=== PATIENT | female | born 1965 | race African-American/Black ===

== ENCOUNTER 2017-10-10 16:56 | Emergency (ER) | payer MEDICARE, MEDICAID ==
[~2017-10-10] VITALS: Ht 162.6 cm; Wt 55.0 kg
[~2017-10-10 16:56] MED LIST: XLV PO
[2017-10-10] MEDS ORDERED: MORPHINE SULFATE 4 MG/ML CPJ (NOT FOR IM USE) IV ONE (17:30)
[2017-10-10] MEDS ORDERED: KETOROLAC 30MG/ML VIAL IV ONE (17:30)
[2017-10-10] MEDS ORDERED: MORPHINE SULFATE 10 MG/ML CPJ IV NR (18:45)
[2017-10-10 22:00] VITALS: BP 131/76
== END 2017-10-10 22:04 | disposition home or self-care (01) ==
LOC: ER 16:56
DX: R07.89 Other chest pain (principal); I10 Essential (primary) hypertension; E11.9 Type 2 diabetes mellitus without complications; F17.210 Nicotine dependence, cigarettes, uncomplicated; I51.9 Heart disease, unspecified; Z95.1 Presence of aortocoronary bypass graft
CPT/HCPCS: 36415; 71020; 81025; 84484; 93005; 96374; 96375; 99285; J1885; J2270

== ENCOUNTER 2019-11-16 15:45 | Inpatient (IN) | payer MEDICARE, MEDICAID ==
[~2019-11-16] VITALS: Ht 157.5 cm; Wt 65.3 kg
[2019-11-16] MEDS ORDERED: ONDANSETRON HCL 4MG/2ML INJ IV STA (18:01)
[2019-11-16] MEDS ORDERED: SODIUM CHLORIDE 0.9% 1,000 ML IV ONE (18:01)
[2019-11-16] MEDS ORDERED: ACETAMINOPHEN 325MG TABLET PO STA (18:01)
[2019-11-16] MEDS ORDERED: PIPERACILLIN/TAZ 3.375G PREMIX 50 ML IV ONE (18:15)
[2019-11-16] MEDS ORDERED: VANCOMYCIN 1 G PREMIX 200 ML IV ONE (18:15)
[2019-11-16 19:12] LABS: BASOPHILS % 0.2 % (0.0-2.0); CHLORIDE 103 mEq/L (98-107); HEMATOCRIT. 36.7 % (36.0-48.0); LYMPHOCYTES % 13.1 % (20.0-50.0); MEAN CORPUSCULAR HEMOGLOBIN 27.7 pg (28.0-32.0); MEAN CORPUSCULAR VOLUME 84.9 fL (81.0-99.0); MEAN PLATELET VOLUME 8.5 fl (7.4-10.4); MONOCYTES % 9.4 % (2.0-8.0); NEUTROPHILS % 77.3 % (40.0-76.0); PLATELET 197 x1000/uL (130-400); RED BLOOD CELL COUNT 4.33 mill/uL (4.2-5.4); RED CELL DISTRIBUTION WIDTH 14.4 % (11.6-14.6)
[2019-11-16 19:13] LABS: INR 1.2; PROTHROMBIN TIME 12.1 sec (9.6-11.0)
[2019-11-16 19:16] LABS: ETHANOL BLOOD < 10 mg/dL
[2019-11-16 20:04] LABS: CLARITY URINE CLEAR (CLEAR); COLOR URINE YELLOW (YELLOW); KETONES URINE NEGATIVE (NEGATIVE); LEUKOCYTE ESTERASE URINE NEGATIVE (NEGATIVE); NITRITE URINE NEGATIVE (NEGATIVE); OCCULT BLOOD URINE NEGATIVE (NEGATIVE); PH URINE 5.5 (4.5-8.0); PROTEIN URINE 2+ (NEGATIVE); SPECIFIC GRAVITY URINE 1.021 (1.005-1.030); UROBILINOGEN URINE 0.2 E.U./dL (0.2-1.0)
[2019-11-16] MEDS ORDERED: KETOROLAC 30MG/ML VIAL IV ONE (20:15)
[2019-11-16 20:16] LABS: *AMPHETAMINES SCREEN URINE NEGATIVE (NEGATIVE); *BARBITURATES SCREEN URINE NEGATIVE (NEGATIVE); *BENZODIAZEPINES SCREEN URINE NEGATIVE (NEGATIVE); *COCAINE SCREEN URINE PRESUMTIVE POSITIVE (NEGATIVE); CANNABINOID URINE SCREEN NEGATIVE (NEGATIVE); METHADONE URINE SCREEN NEGATIVE (NEGATIVE); OPIATES URINE SCREEN PRESUMTIVE POSITIVE (NEGATIVE)
[2019-11-16 20:17] LABS: PHENCYCLIDINE URINE SCREEN NEGATIVE (NEGATIVE)
[2019-11-16] MEDS ORDERED: ONDANSETRON HCL 4MG/2ML INJ IV ONE (22:15)
[2019-11-16] MEDS ORDERED: MORPHINE SULFATE 4 MG/ML CPJ (NOT FOR IM USE) IV ONE (22:15)
[2019-11-16] MEDS ORDERED: DEXAMETHASONE 10 MG/ML VIAL IV ONE (23:30)
[2019-11-16] MEDS ORDERED: LEVETIRACETAM 500MG PREMIX 100 ML IV ONE (23:30)
[2019-11-17] VITALS (34 sets, daily range): BP systolic 83–124; BP diastolic 27–90
[2019-11-17] MEDS ORDERED: GADOBENATE DIMEGLUMINE 529 MG/ML 10ML IV ONE (02:28)
[2019-11-17] MEDS ORDERED: ONDANSETRON HCL 4MG/2ML INJ IV ONE (02:30)
[2019-11-17] MEDS ORDERED: MORPHINE SULFATE 4 MG/ML CPJ (NOT FOR IM USE) IV ONE (02:30)
[2019-11-17] MEDS: IPRATROPIUM/ALBUTEROL 0.5-3(2.5)MG/3ML NEB HHN SCH (05:35)
[2019-11-17] MEDS ORDERED: BENZONATATE 100MG CAPSULE PO PRN (08:00)
[2019-11-17] MEDS ORDERED: IPRATROPIUM/ALBUTEROL 0.5-3(2.5)MG/3ML NEB HHN PRN ×2 (08:00→15:00)
[2019-11-17] MEDS ORDERED: POTASSIUM CHLORIDE 20MEQ TABLET SR PO SCH (09:00)
[2019-11-17] MEDS ORDERED: DIATR MEGLU/DIATRIZOATE SOLN 30ML PO SCH (09:30)
[2019-11-17] MEDS ORDERED: LEVETIRACETAM 500 MG in SODIUM CHLORIDE 0.9% 100 ML IV SCH (09:30)
[2019-11-17] MEDS: LEVETIRACETAM 500MG PREMIX 100 ML IV SCH ×2 (10:30→21:06)
[2019-11-17 11:04] LABS: BASOPHILS % 0.3 % (0.0-2.0); HEMATOCRIT. 34.8 % (36.0-48.0); HEMOGLOBIN. 11.5 g/dL (12.0-16.0); LYMPHOCYTES % 9.4 % (20.0-50.0); MEAN CORPUSCULAR HEMOGLOBIN 28.1 pg (28.0-32.0); MEAN CORPUSCULAR VOLUME 84.9 fL (81.0-99.0); MEAN PLATELET VOLUME 8.6 fl (7.4-10.4); MONOCYTES % 2.7 % (2.0-8.0); NEUTROPHILS % 87.6 % (40.0-76.0); PLATELET 183 x1000/uL (130-400); RED CELL DISTRIBUTION WIDTH 14.7 % (11.6-14.6)
[2019-11-17 11:20] LABS: CHLORIDE 105 mEq/L (98-107)
[2019-11-17] MEDS: DEXAMETHASONE 4MG/ML 1ML VIAL IV SCH ×3 (13:21→23:36)
[2019-11-17] MEDS: DEXT 5%/LACTATED RINGERS 1,000 ML IV SCH ×2 (13:22→23:37)
[2019-11-17] MEDS: MORPHINE SULFATE 2 MG/ML CPJ (NOT FOR IM USE) IV PRN ×2 (13:23→17:26)
[2019-11-17] MEDS ORDERED: DEXTROSE 50% WATER 50ML SYRINGE IV PRN (15:00)
[2019-11-17] MEDS ORDERED: INSULIN LISPRO 100 UNITS/ML SUBCUT SCH (17:00)
[2019-11-17] MEDS: BLOOD SUGAR DIAGNOSTIC STRIP TEST SCH ×2 (17:24→21:00)
[2019-11-17] MEDS: LEVOFLOXACIN 500MG PREMIX 100 ML IV SCH (17:24)
[2019-11-17 18:18] LABS: HEPATITIS B SURFACE ANTIGEN NEGATIVE
[2019-11-17] MEDS ORDERED: INSULIN LISPRO 100 UNITS/ML SUBCUT NR (18:45)
[2019-11-17 18:49] LABS: HEPATITIS A AB IGM NEGATIVE (NEGATIVE)
[2019-11-17] MEDS: MORPHINE SULFATE 4 MG/ML CPJ (NOT FOR IM USE) IV PRN (21:25)
[2019-11-17] MEDS: INSULIN GLARGINE UD 100 UNITS/ML SYR SUBCUT SCH (21:27)
[2019-11-17] MEDS: INSULIN LISPRO 100 UNITS/ML SUBCUT SCH (21:27)
[2019-11-18] VITALS (29 sets, daily range): BP systolic 92–151; BP diastolic 52–76
[2019-11-18] MEDS: DEXAMETHASONE 4MG/ML 1ML VIAL IV SCH ×3 (06:03→17:33)
[2019-11-18] MEDS: MORPHINE SULFATE 4 MG/ML CPJ (NOT FOR IM USE) IV PRN ×4 (06:04→22:01)
[2019-11-18] MEDS: BLOOD SUGAR DIAGNOSTIC STRIP TEST SCH ×4 (06:05→21:47)
[2019-11-18] MEDS: INSULIN LISPRO 100 UNITS/ML SUBCUT SCH ×6 (06:06→22:06)
[2019-11-18] MEDS ORDERED: LIDOCAINE HCL 1% 20ML VIAL (Pyxis) INJ ONE (06:53)
[2019-11-18] MEDS: IPRATROPIUM/ALBUTEROL 0.5-3(2.5)MG/3ML NEB HHN SCH ×4 (08:38→20:00)
[2019-11-18] MEDS: LEVETIRACETAM 500MG PREMIX 100 ML IV SCH ×2 (09:19→21:47)
[2019-11-18] MEDS: INSULIN GLARGINE UD 100 UNITS/ML SYR SUBCUT SCH ×2 (10:00→22:07)
[2019-11-18] MEDS ORDERED: DIPHENHYDRAMINE 50MG/ML VIAL IV SCH (11:00)
[2019-11-18] MEDS: LEVOFLOXACIN 500MG PREMIX 100 ML IV SCH (11:28)
[2019-11-18 15:31] LABS: HEMATOCRIT. 31.7 % (36.0-48.0); HEMOGLOBIN. 10.3 g/dL (12.0-16.0); MEAN CORPUSCULAR HEMOGLOBIN 27.2 pg (28.0-32.0); MEAN CORPUSCULAR VOLUME 84.1 fL (81.0-99.0); MEAN PLATELET VOLUME 8.6 fl (7.4-10.4); PLATELET 171 x1000/uL (130-400); RED BLOOD CELL COUNT 3.77 mill/uL (4.2-5.4); RED CELL DISTRIBUTION WIDTH 14.7 % (11.6-14.6)
[2019-11-18 15:39] LABS: CHLORIDE 108 mEq/L (98-107)
[2019-11-18 16:21] LABS: PLATELET ESTIMATE NORMAL
[2019-11-18] MEDS: ACETYLCYSTEINE 100MG/ML 10% VIAL 4ML INH SCH (16:23)
[2019-11-18] MEDS: DEXT 5%/LACTATED RINGERS 1,000 ML IV SCH (17:38)
[2019-11-19] VITALS (24 sets, daily range): BP systolic 111–147; BP diastolic 56–73
[2019-11-19] MEDS: DEXAMETHASONE 4MG/ML 1ML VIAL IV SCH ×3 (00:24→11:17)
[2019-11-19] MEDS: ACETAMINOPHEN 325MG TABLET PO PRN ×2 (00:36→14:18)
[2019-11-19 06:05] LABS: HEMOGLOBIN. 10.7 g/dL (12.0-16.0); MEAN CORPUSCULAR VOLUME 83.7 fL (81.0-99.0); MEAN PLATELET VOLUME 9.2 fl (7.4-10.4); PLATELET 176 x1000/uL (130-400); RED BLOOD CELL COUNT 3.83 mill/uL (4.2-5.4); RED CELL DISTRIBUTION WIDTH 15.1 % (11.6-14.6)
[2019-11-19 06:15] LABS: CHLORIDE 107 mEq/L (98-107)
[2019-11-19] MEDS: INSULIN LISPRO 100 UNITS/ML SUBCUT SCH ×7 (06:30→21:15)
[2019-11-19] MEDS: BLOOD SUGAR DIAGNOSTIC STRIP TEST SCH ×4 (06:33→20:48)
[2019-11-19] MEDS ORDERED: DIATR MEGLU/DIATRIZOATE SOLN 30ML PO SCH (08:00)
[2019-11-19] MEDS: LEVETIRACETAM 500MG PREMIX 100 ML IV SCH ×2 (08:19→21:09)
[2019-11-19] MEDS: IPRATROPIUM/ALBUTEROL 0.5-3(2.5)MG/3ML NEB HHN SCH ×4 (09:11→20:28)
[2019-11-19] MEDS: ACETYLCYSTEINE 100MG/ML 10% VIAL 4ML INH SCH ×3 (09:11→17:05)
[2019-11-19] MEDS: INSULIN GLARGINE UD 100 UNITS/ML SYR SUBCUT SCH ×2 (09:40→21:16)
[2019-11-19] MEDS: MORPHINE SULFATE 4 MG/ML CPJ (NOT FOR IM USE) IV PRN ×3 (11:17→19:50)
[2019-11-19] MEDS: LEVOFLOXACIN 500MG PREMIX 100 ML IV SCH (11:18)
[2019-11-19 11:40] LABS: PLATELET ESTIMATE NORMAL
[2019-11-19] MEDS ORDERED: IOHEXOL-300 100 ML BOTTLE ONE (12:12)
[2019-11-19] MEDS: DEXT 5%/LACTATED RINGERS 1,000 ML IV SCH (14:55)
[2019-11-20] VITALS (27 sets, daily range): BP systolic 80–142; BP diastolic 46–106
[2019-11-20] MEDS: MORPHINE SULFATE 4 MG/ML CPJ (NOT FOR IM USE) IV PRN ×5 (00:03→21:00)
[2019-11-20] MEDS: IPRATROPIUM/ALBUTEROL 0.5-3(2.5)MG/3ML NEB HHN SCH ×6 (00:18→20:00)
[2019-11-20 04:09] LABS: CANCER ANTIGEN 125 9.3 U/mL (0.0-38.1)
[2019-11-20 06:00] LABS: CHLORIDE 104 mEq/L (98-107)
[2019-11-20 06:01] LABS: BASOPHILS % 0.3 % (0.0-2.0); EOSINOPHILS % 0.1 % (0.0-5.0); HEMATOCRIT. 32.7 % (36.0-48.0); HEMOGLOBIN. 10.9 g/dL (12.0-16.0); LYMPHOCYTES % 15.1 % (20.0-50.0); MEAN CORPUSCULAR VOLUME 83.9 fL (81.0-99.0); MEAN PLATELET VOLUME 9.2 fl (7.4-10.4); MONOCYTES % 8.5 % (2.0-8.0); PLATELET 169 x1000/uL (130-400); RED BLOOD CELL COUNT 3.89 mill/uL (4.2-5.4)
[2019-11-20] MEDS: BLOOD SUGAR DIAGNOSTIC STRIP TEST SCH ×4 (06:10→20:19)
[2019-11-20] MEDS: INSULIN LISPRO 100 UNITS/ML SUBCUT SCH ×5 (06:30→21:01)
[2019-11-20] MEDS: ACETYLCYSTEINE 100MG/ML 10% VIAL 4ML INH SCH ×2 (08:08→16:49)
[2019-11-20] MEDS: DEXTROSE 10% WATER 1,000 ML IV SCH (08:59)
[2019-11-20] MEDS: LEVETIRACETAM 500MG PREMIX 100 ML IV SCH ×2 (08:59→20:59)
[2019-11-20] MEDS ORDERED: POTASSIUM CHLORIDE INJ 40 MEQ in DEXT 5% WATER 250 ML IV SCH (09:00)
[2019-11-20] MEDS: VANCOMYCIN 1 G PREMIX 200 ML IV SCH (13:11)
[2019-11-20] MEDS: ACETAMINOPHEN 325MG TABLET PO PRN (13:51)
[2019-11-20] MEDS: DEXAMETHASONE 4MG/ML 1ML VIAL IV SCH (17:01)
[2019-11-20] MEDS ORDERED: CEFTRIAXONE 2 G PREMIX 50 ML IV SCH (21:00)
[2019-11-20] MEDS: CEFTRIAXONE 2 G in DEXTROSE 5% WATER 50 ML IV SCH (21:19)
[2019-11-21] VITALS (40 sets, daily range): BP systolic 84–137; BP diastolic 46–74
[2019-11-21] MEDS: IPRATROPIUM/ALBUTEROL 0.5-3(2.5)MG/3ML NEB HHN SCH ×5 (00:17→21:02)
[2019-11-21] MEDS: ACETYLCYSTEINE 100MG/ML 10% VIAL 4ML INH SCH ×3 (00:17→16:25)
[2019-11-21] MEDS: VANCOMYCIN 1 G PREMIX 200 ML IV SCH ×2 (00:36→12:25)
[2019-11-21] MEDS: MORPHINE SULFATE 4 MG/ML CPJ (NOT FOR IM USE) IV PRN ×5 (00:40→20:28)
[2019-11-21] MEDS: DEXAMETHASONE 4MG/ML 1ML VIAL IV SCH ×2 (05:29→17:24)
[2019-11-21] MEDS: BLOOD SUGAR DIAGNOSTIC STRIP TEST SCH ×4 (05:59→20:20)
[2019-11-21] MEDS: INSULIN LISPRO 100 UNITS/ML SUBCUT SCH ×4 (06:07→20:29)
[2019-11-21] MEDS: DEXTROSE 10% WATER 1,000 ML IV SCH (06:53)
[2019-11-21 09:09] LABS: HEMATOCRIT. 34.3 % (36.0-48.0); HEMOGLOBIN. 11.4 g/dL (12.0-16.0); LYMPHOCYTES % 10.3 % (20.0-50.0); MEAN CORPUSCULAR HEMOGLOBIN 27.6 pg (28.0-32.0); MEAN CORPUSCULAR VOLUME 83.3 fL (81.0-99.0); MEAN PLATELET VOLUME 9.3 fl (7.4-10.4); MONOCYTES % 6.7 % (2.0-8.0); PLATELET 155 x1000/uL (130-400); RED BLOOD CELL COUNT 4.11 mill/uL (4.2-5.4); RED CELL DISTRIBUTION WIDTH 14.9 % (11.6-14.6)
[2019-11-21 09:19] LABS: CHLORIDE 98 mEq/L (98-107)
[2019-11-21] MEDS: CEFTRIAXONE 2 G in DEXTROSE 5% WATER 50 ML IV SCH ×2 (10:13→20:24)
[2019-11-21] MEDS: LEVETIRACETAM 500MG PREMIX 100 ML IV SCH ×2 (10:13→20:24)
[2019-11-21] MEDS: DIPHENHYDRAMINE 50MG/ML VIAL IV PRN ×2 (12:28→18:04)
[2019-11-21] MEDS: INSULIN GLARGINE UD 100 UNITS/ML SYR SUBCUT SCH (22:24)
[2019-11-22] VITALS (58 sets, daily range): BP systolic 96–138; BP diastolic 28–123
[2019-11-22] MEDS: DIPHENHYDRAMINE 50MG/ML VIAL IV PRN ×2 (00:01→20:18)
[2019-11-22] MEDS: VANCOMYCIN 1 G PREMIX 200 ML IV SCH (00:01)
[2019-11-22] MEDS: MORPHINE SULFATE 4 MG/ML CPJ (NOT FOR IM USE) IV PRN ×8 (00:24→22:48)
[2019-11-22] MEDS: IPRATROPIUM/ALBUTEROL 0.5-3(2.5)MG/3ML NEB HHN SCH ×6 (04:00→21:40)
[2019-11-22 05:13] LABS: BASOPHILS % 0.1 % (0.0-2.0); EOSINOPHILS % 0.2 % (0.0-5.0); HEMATOCRIT. 32.8 % (36.0-48.0); HEMOGLOBIN. 8.9 g/dL (12.0-16.0); LYMPHOCYTES % 7.1 % (20.0-50.0); MEAN CORPUSCULAR HEMOGLOBIN 28.3 pg (28.0-32.0); MEAN CORPUSCULAR VOLUME 104.2 fL (81.0-99.0); MEAN PLATELET VOLUME 9.9 fl (7.4-10.4); MONOCYTES % 6.7 % (2.0-8.0); NEUTROPHILS % 85.9 % (40.0-76.0); PLATELET 120 x1000/uL (130-400); RED BLOOD CELL COUNT 3.14 mill/uL (4.2-5.4)
[2019-11-22] MEDS: BLOOD SUGAR DIAGNOSTIC STRIP TEST SCH ×4 (05:55→20:25)
[2019-11-22] MEDS: DEXAMETHASONE 4MG/ML 1ML VIAL IV SCH ×3 (05:55→17:27)
[2019-11-22] MEDS: INSULIN LISPRO 100 UNITS/ML SUBCUT SCH ×4 (06:00→20:26)
[2019-11-22] MEDS: DEXTROSE 10% WATER 1,000 ML IV SCH ×2 (06:19→10:00)
[2019-11-22] MEDS: LEVETIRACETAM 500MG PREMIX 100 ML IV SCH ×2 (08:01→20:18)
[2019-11-22] MEDS: CEFTRIAXONE 2 G in DEXTROSE 5% WATER 50 ML IV SCH ×2 (08:01→21:34)
[2019-11-22] MEDS: ACETYLCYSTEINE 100MG/ML 10% VIAL 4ML INH SCH ×2 (08:44)
[2019-11-22] MEDS ORDERED: BACITRACIN 50,000 UNITS/VIAL ONE (09:16)
[2019-11-22] MEDS ORDERED: NORMAL SALINE 0.9% 10 ML SYR ONE (09:16)
[2019-11-22] MEDS ORDERED: THROMBIN (BOVINE) 5000 UNITS/VIAL TOP ONE (09:16)
[2019-11-22 10:02] LABS: CHLORIDE 102 mEq/L (98-107)
[2019-11-22] MEDS: INSULIN GLARGINE UD 100 UNITS/ML SYR SUBCUT SCH (11:01)
[2019-11-22] MEDS ORDERED: LEVETIRACETAM 500 MG IV ONE (11:29)
[2019-11-22] MEDS ORDERED: MANNITOL 20% 500 ML IV ONE (11:29)
[2019-11-22] MEDS: GUAIFENESIN 600MG ER TABLET PO SCH ×2 (11:30→20:25)
[2019-11-22] MEDS ORDERED: LIDOCAINE HCL/EPINEPHRINE 1%-EPI 1:100,000 20 ML VIAL ONE ×2 (12:07→12:39)
[2019-11-22] MEDS ORDERED: FENTANYL CITRATE/PF 50MCG/ML 2ML VIAL ONE ×2 (12:14→12:44)
[2019-11-22] MEDS ORDERED: PROPOFOL 200MG/20ML VIAL IV ONE (12:14)
[2019-11-22] MEDS ORDERED: NEOSTIGMINE METHYLSULFATE 1MG/ML 10 ML VIAL ONE (12:14)
[2019-11-22] MEDS ORDERED: ROCURONIUM BROMIDE 10MG/ML VIAL 5ML IV ONE (12:14)
[2019-11-22] MEDS ORDERED: GLYCOPYRROLATE 0.2 MG/ML 2ML VIAL ONE ×3 (12:15→13:49)
[2019-11-22] MEDS ORDERED: MIDAZOLAM HCL 2 MG/2 ML VIAL ONE (12:15)
[2019-11-22] MEDS ORDERED: ONDANSETRON HCL 4MG/2ML INJ ONE (12:44)
[2019-11-22] MEDS ORDERED: DEXAMETHASONE 4MG/ML 1ML VIAL ONE (12:44)
[2019-11-22] MEDS ORDERED: BACITRACIN 15GM TUBE TOP ONE (13:10)
[2019-11-22] MEDS ORDERED: EPHEDRINE SULFATE 50MG/ML VIAL ONE (13:47)
[2019-11-22] MEDS ORDERED: CEFAZOLIN SODIUM 1000MG/VIAL ONE (13:47)
[2019-11-22] MEDS ORDERED: LIDOCAINE HCL/PF 1% 10 MG/ML 5ML VIAL ONE (13:47)
[2019-11-22] MEDS ORDERED: NALOXONE HCL 0.4 MG/ML 1ML VIAL ONE (13:47)
[2019-11-22] MEDS ORDERED: SODIUM CHLORIDE 0.9% 10ML VIAL ONE (13:47)
[2019-11-22] MEDS ORDERED: LABETALOL HCL 5MG/ML VIAL 20ML IV ONE (13:47)
[2019-11-22] MEDS ORDERED: CEFAZOLIN SODIUM 1000MG/VIAL IV SCH (14:00)
[2019-11-22] MEDS ORDERED: NICARDIPINE 100 MG in SODIUM CHLORIDE 0.9% 60 ML IV PRN (14:00)
[2019-11-22] MEDS ORDERED: MORPHINE SULFATE 4 MG/ML CPJ (NOT FOR IM USE) IV PRN (14:00)
[2019-11-22] MEDS: ONDANSETRON HCL 4MG/2ML INJ IV PRN (15:33)
[2019-11-22] MEDS ORDERED: DEXT 5%/LACTATED RINGERS 1,000 ML IV SCH (16:15)
[2019-11-22] MEDS: CEFAZOLIN 1000MG PREMIX 50 ML IV SCH (22:28)
[2019-11-23] VITALS (74 sets, daily range): BP systolic 85–153; BP diastolic 38–92
[2019-11-23] MEDS ORDERED: VANCOMYCIN 1 G PREMIX 200 ML IV SCH
[2019-11-23] MEDS: MORPHINE SULFATE 4 MG/ML CPJ (NOT FOR IM USE) IV PRN ×11 (00:01→19:51)
[2019-11-23] MEDS: IPRATROPIUM/ALBUTEROL 0.5-3(2.5)MG/3ML NEB HHN SCH ×6 (01:53→12:00)
[2019-11-23] MEDS: DIPHENHYDRAMINE 50MG/ML VIAL IV PRN ×2 (02:00→23:02)
[2019-11-23] MEDS: DEXAMETHASONE 4MG/ML 1ML VIAL IV SCH ×4 (05:42→17:00)
[2019-11-23] MEDS: CEFAZOLIN 1000MG PREMIX 50 ML IV SCH ×2 (05:43→13:43)
[2019-11-23 06:11] LABS: CHLORIDE 107 mEq/L (98-107)
[2019-11-23 06:17] LABS: HEMATOCRIT. 30.7 % (36.0-48.0); HEMOGLOBIN. 10.1 g/dL (12.0-16.0); MEAN CORPUSCULAR HEMOGLOBIN 27.5 pg (28.0-32.0); MEAN CORPUSCULAR VOLUME 83.8 fL (81.0-99.0); PLATELET 203 x1000/uL (130-400); RED BLOOD CELL COUNT 3.66 mill/uL (4.2-5.4); RED CELL DISTRIBUTION WIDTH 14.5 % (11.6-14.6)
[2019-11-23] MEDS: INSULIN LISPRO 100 UNITS/ML SUBCUT SCH ×4 (06:46→20:59)
[2019-11-23] MEDS: BLOOD SUGAR DIAGNOSTIC STRIP TEST SCH ×4 (06:46→20:59)
[2019-11-23 07:52] LABS: PLATELET ESTIMATE NORMAL
[2019-11-23] MEDS: GUAIFENESIN 600MG ER TABLET PO SCH ×2 (08:24→20:51)
[2019-11-23] MEDS: CEFTRIAXONE 2 G in DEXTROSE 5% WATER 50 ML IV SCH (08:25)
[2019-11-23] MEDS: LEVETIRACETAM 500MG PREMIX 100 ML IV SCH ×2 (08:25→20:51)
[2019-11-23] MEDS: MORPHINE SULFATE 2 MG/ML CPJ (NOT FOR IM USE) IV PRN (21:59)
[2019-11-23] MEDS ORDERED: HYDRALAZINE 5 MG in SODIUM CHLORIDE 0.9% 49.5 ML IV PRN (23:00)
[2019-11-24] VITALS: BP 112/60
[2019-11-24] MEDS: DEXAMETHASONE 4MG/ML 1ML VIAL IV SCH ×4 (02:50→16:40)
[2019-11-24 04:00] VITALS: BP 112/72
[2019-11-24] MEDS: MORPHINE SULFATE 2 MG/ML CPJ (NOT FOR IM USE) IV PRN ×9 (04:48→23:45)
[2019-11-24] MEDS: INSULIN LISPRO 100 UNITS/ML SUBCUT SCH ×4 (07:25→22:09)
[2019-11-24] MEDS: BLOOD SUGAR DIAGNOSTIC STRIP TEST SCH ×4 (07:25→21:30)
[2019-11-24] MEDS: GUAIFENESIN 600MG ER TABLET PO SCH ×2 (08:27→21:39)
[2019-11-24] MEDS: LEVETIRACETAM 500MG PREMIX 100 ML IV SCH ×2 (08:27→21:38)
[2019-11-24] MEDS: ACETAMINOPHEN 325MG TABLET PO PRN (10:33)
[2019-11-24] MEDS: IPRATROPIUM/ALBUTEROL 0.5-3(2.5)MG/3ML NEB HHN SCH ×2 (13:15→17:10)
[2019-11-24] MEDS ORDERED: HYDROCODONE/ACETAMINOPHEN 10/325MG TABLET PO PRN (16:15)
[2019-11-24] MEDS: DOCUSATE SODIUM 250MG CAPSULE PO SCH (16:40)
[2019-11-24] MEDS: DIPHENHYDRAMINE 50MG/ML VIAL IV PRN ×2 (16:41→23:44)
[2019-11-24 17:41] LABS: HEMATOCRIT. 33.9 % (36.0-48.0); MEAN CORPUSCULAR HEMOGLOBIN 27.3 pg (28.0-32.0); MEAN CORPUSCULAR VOLUME 84.3 fL (81.0-99.0); MEAN PLATELET VOLUME 8.3 fl (7.4-10.4); PLATELET 273 x1000/uL (130-400); RED BLOOD CELL COUNT 4.02 mill/uL (4.2-5.4)
[2019-11-24 17:46] LABS: CHLORIDE 103 mEq/L (98-107)
[2019-11-24 20:00] VITALS: BP 111/71
[2019-11-24 20:41] LABS: ATYPICAL LYMPHOCYTES 1; PLATELET ESTIMATE NORMAL
[2019-11-24] MEDS: MORPHINE SULFATE 15MG TABLET SR PO SCH (21:43)
[2019-11-25] VITALS: BP 107/71
[2019-11-25] MEDS: MORPHINE SULFATE 2 MG/ML CPJ (NOT FOR IM USE) IV PRN ×7 (02:25→22:31)
[2019-11-25 04:00] VITALS: BP 148/83
[2019-11-25 08:00] VITALS: BP 121/74
[2019-11-25 08:03] LABS: BASOPHILS % 0.2 % (0.0-2.0); HEMATOCRIT. 31.6 % (36.0-48.0); HEMOGLOBIN. 10.4 g/dL (12.0-16.0); LYMPHOCYTES % 10.3 % (20.0-50.0); MEAN CORPUSCULAR HEMOGLOBIN 27.6 pg (28.0-32.0); MEAN CORPUSCULAR VOLUME 83.8 fL (81.0-99.0); MONOCYTES % 8.9 % (2.0-8.0); NEUTROPHILS % 80.6 % (40.0-76.0); PLATELET 282 x1000/uL (130-400); RED BLOOD CELL COUNT 3.77 mill/uL (4.2-5.4)
[2019-11-25] MEDS: BLOOD SUGAR DIAGNOSTIC STRIP TEST SCH ×4 (08:07→21:00)
[2019-11-25 08:30] LABS: CHLORIDE 108 mEq/L (98-107)
[2019-11-25] MEDS: MORPHINE SULFATE 15MG TABLET SR PO SCH (09:00)
[2019-11-25] MEDS: GUAIFENESIN 600MG ER TABLET PO SCH ×2 (09:00→22:25)
[2019-11-25] MEDS: LEVETIRACETAM 500MG PREMIX 100 ML IV SCH ×2 (09:37→22:25)
[2019-11-25] MEDS: DOCUSATE SODIUM 250MG CAPSULE PO SCH (09:37)
[2019-11-25] MEDS: INSULIN LISPRO 100 UNITS/ML SUBCUT SCH ×4 (09:56→21:00)
[2019-11-25] MEDS: IPRATROPIUM/ALBUTEROL 0.5-3(2.5)MG/3ML NEB HHN SCH ×3 (10:20→20:09)
[2019-11-25] MEDS: OXYCODONE HCL/ACETAMINOPHEN 5/325MG TABLET PO PRN (10:59)
[2019-11-25 12:00] VITALS: BP 118/66
[2019-11-25 20:00] VITALS: BP 123/76
[2019-11-26] VITALS: BP 117/72
[2019-11-26] MEDS: MORPHINE SULFATE 15MG TABLET SR PO SCH ×3 (03:49→20:47)
[2019-11-26] MEDS: IPRATROPIUM/ALBUTEROL 0.5-3(2.5)MG/3ML NEB HHN SCH ×5 (03:54→21:39)
[2019-11-26 04:00] VITALS: BP 112/52
[2019-11-26] MEDS: BLOOD SUGAR DIAGNOSTIC STRIP TEST SCH ×4 (07:20→21:44)
[2019-11-26] MEDS: INSULIN LISPRO 100 UNITS/ML SUBCUT SCH ×4 (07:50→21:47)
[2019-11-26 08:00] VITALS: BP 106/65
[2019-11-26 08:12] LABS: BASOPHILS % 0.1 % (0.0-2.0); EOSINOPHILS % 1.4 % (0.0-5.0); HEMATOCRIT. 31.1 % (36.0-48.0); HEMOGLOBIN. 10.3 g/dL (12.0-16.0); LYMPHOCYTES % 10.8 % (20.0-50.0); MEAN CORPUSCULAR HEMOGLOBIN 27.7 pg (28.0-32.0); MEAN CORPUSCULAR VOLUME 83.9 fL (81.0-99.0); MEAN PLATELET VOLUME 7.6 fl (7.4-10.4); MONOCYTES % 4.8 % (2.0-8.0); NEUTROPHILS % 82.9 % (40.0-76.0); PLATELET 199 x1000/uL (130-400); RED BLOOD CELL COUNT 3.71 mill/uL (4.2-5.4); RED CELL DISTRIBUTION WIDTH 14.7 % (11.6-14.6)
[2019-11-26 08:20] LABS: CHLORIDE 107 mEq/L (98-107)
[2019-11-26] MEDS: DOCUSATE SODIUM 250MG CAPSULE PO SCH (08:58)
[2019-11-26] MEDS: LEVETIRACETAM 500MG PREMIX 100 ML IV SCH ×2 (08:58→20:47)
[2019-11-26] MEDS: GUAIFENESIN 600MG ER TABLET PO SCH ×2 (08:58→20:47)
[2019-11-26] MEDS: MORPHINE SULFATE 2 MG/ML CPJ (NOT FOR IM USE) IV PRN ×4 (09:04→20:51)
[2019-11-26 12:00] VITALS: BP 109/62
[2019-11-26] MEDS ORDERED: KEPP500 MT (12:32)
[2019-11-26] MEDS ORDERED: MORP15TA54 MT (12:32)
[2019-11-26] MEDS ORDERED: ALBU18HF2 IH (12:32)
[2019-11-26] MEDS ORDERED: METF-416 MT (12:32)
[2019-11-26] MEDS ORDERED: FLUT1DIS3 INH (12:32)
[2019-11-26] MEDS ORDERED: OXYC-523 MT (12:32)
[2019-11-26 16:00] VITALS: BP 99/61
[2019-11-26 20:00] VITALS: BP 101/55
[2019-11-27] VITALS (7 sets, daily range): BP systolic 94–114; BP diastolic 52–72
[2019-11-27] MEDS: MORPHINE SULFATE 2 MG/ML CPJ (NOT FOR IM USE) IV PRN ×3 (02:27→12:04)
[2019-11-27] MEDS: IPRATROPIUM/ALBUTEROL 0.5-3(2.5)MG/3ML NEB HHN SCH ×4 (02:37→12:55)
[2019-11-27] MEDS: BLOOD SUGAR DIAGNOSTIC STRIP TEST SCH ×4 (06:49→21:00)
[2019-11-27] MEDS: INSULIN LISPRO 100 UNITS/ML SUBCUT SCH ×4 (07:58→21:00)
[2019-11-27] MEDS: DOCUSATE SODIUM 250MG CAPSULE PO SCH (08:43)
[2019-11-27] MEDS: LEVETIRACETAM 500MG PREMIX 100 ML IV SCH ×2 (08:44→21:15)
[2019-11-27] MEDS: MORPHINE SULFATE 15MG TABLET SR PO SCH ×2 (08:44→21:00)
[2019-11-27] MEDS: GUAIFENESIN 600MG ER TABLET PO SCH ×2 (10:09→21:15)
[2019-11-27] MEDS: ONDANSETRON HCL 4MG/2ML INJ IV PRN (12:02)
[2019-11-27] MEDS ORDERED: POTASSIUM CHLORIDE 20MEQ TABLET SR PO NR (13:15)
[2019-11-27] MEDS: DIPHENHYDRAMINE 50MG/ML VIAL IV PRN (16:27)
[2019-11-27] MEDS: OXYCODONE HCL/ACETAMINOPHEN 5/325MG TABLET PO PRN (18:24)
[2019-11-27] MEDS: MORPHINE SULFATE 4 MG/ML CPJ (NOT FOR IM USE) IV PRN (23:36)
[2019-11-28] VITALS: BP 125/70
[2019-11-28] MEDS: MORPHINE SULFATE 4 MG/ML CPJ (NOT FOR IM USE) IV PRN ×2 (02:09→09:11)
[2019-11-28 04:00] VITALS: BP 106/66
[2019-11-28] MEDS: DIPHENHYDRAMINE 50MG/ML VIAL IV PRN ×3 (05:21→20:41)
[2019-11-28 06:57] LABS: BASOPHILS % 0.2 % (0.0-2.0); EOSINOPHILS % 1.7 % (0.0-5.0); HEMATOCRIT. 29.7 % (36.0-48.0); HEMOGLOBIN. 9.9 g/dL (12.0-16.0); LYMPHOCYTES % 11.4 % (20.0-50.0); MEAN CORPUSCULAR HEMOGLOBIN 28.1 pg (28.0-32.0); MEAN CORPUSCULAR VOLUME 84.3 fL (81.0-99.0); MEAN PLATELET VOLUME 7.1 fl (7.4-10.4); MONOCYTES % 6.2 % (2.0-8.0); NEUTROPHILS % 80.5 % (40.0-76.0); PLATELET 351 x1000/uL (130-400); RED BLOOD CELL COUNT 3.53 mill/uL (4.2-5.4); RED CELL DISTRIBUTION WIDTH 14.9 % (11.6-14.6)
[2019-11-28] MEDS: BLOOD SUGAR DIAGNOSTIC STRIP TEST SCH ×4 (07:50→20:41)
[2019-11-28 08:00] VITALS: BP 107/69
[2019-11-28] MEDS: LEVETIRACETAM 500MG PREMIX 100 ML IV SCH ×2 (08:26→21:58)
[2019-11-28] MEDS: GUAIFENESIN 600MG ER TABLET PO SCH ×2 (08:27→20:54)
[2019-11-28] MEDS: DOCUSATE SODIUM 250MG CAPSULE PO SCH (08:27)
[2019-11-28] MEDS: INSULIN LISPRO 100 UNITS/ML SUBCUT SCH ×4 (08:29→20:53)
[2019-11-28] MEDS: MORPHINE SULFATE 15MG TABLET SR PO SCH ×2 (08:35→20:53)
[2019-11-28] MEDS: ONDANSETRON HCL 4MG/2ML INJ IV PRN (09:03)
[2019-11-28 12:00] VITALS: BP 119/67
[2019-11-28] MEDS ORDERED: IPRA3AMP9 HHN (15:13)
[2019-11-28 16:00] VITALS: BP 123/72
[2019-11-28] MEDS ORDERED: HYDROCODONE/ACETAMINOPHEN 5/325MG TABLET PO PRN (18:45)
[2019-11-28 20:00] VITALS: BP 117/69
[2019-11-28] MEDS: INSULIN GLARGINE UD 100 UNITS/ML SYR SUBCUT SCH (21:59)
[2019-11-29] VITALS: BP 118/70
[2019-11-29] MEDS: ONDANSETRON HCL 4MG/2ML INJ IV PRN (01:00)
[2019-11-29 04:00] VITALS: BP 120/72
[2019-11-29] MEDS: BLOOD SUGAR DIAGNOSTIC STRIP TEST SCH ×4 (07:11→20:47)
[2019-11-29] MEDS: INSULIN LISPRO 100 UNITS/ML SUBCUT SCH ×4 (07:50→20:47)
[2019-11-29 08:00] VITALS: BP 115/67
[2019-11-29] MEDS: DOCUSATE SODIUM 250MG CAPSULE PO SCH (09:00)
[2019-11-29] MEDS: LEVETIRACETAM 500MG PREMIX 100 ML IV SCH ×2 (09:35→20:47)
[2019-11-29] MEDS: MORPHINE SULFATE 15MG TABLET SR PO SCH ×2 (09:36→20:47)
[2019-11-29] MEDS: GUAIFENESIN 600MG ER TABLET PO SCH ×2 (09:37→20:47)
[2019-11-29] MEDS: INSULIN GLARGINE UD 100 UNITS/ML SYR SUBCUT SCH ×2 (10:39→22:00)
[2019-11-29] MEDS: DIPHENHYDRAMINE 50MG/ML VIAL IV PRN (11:11)
[2019-11-29] MEDS ORDERED: DIPHENOXYLATE/ATROPINE 2.5/0.025MG TABLET PO PRN (11:15)
[2019-11-29 11:43] LABS: CHLORIDE 106 mEq/L (98-107)
[2019-11-29 11:49] LABS: EOSINOPHILS % 0.5 % (0.0-5.0); HEMATOCRIT. 24.8 % (36.0-48.0); HEMOGLOBIN. 8.3 g/dL (12.0-16.0); LYMPHOCYTES % 10.5 % (20.0-50.0); MEAN CORPUSCULAR HEMOGLOBIN 28.3 pg (28.0-32.0); MEAN CORPUSCULAR VOLUME 84.4 fL (81.0-99.0); MEAN PLATELET VOLUME 7.1 fl (7.4-10.4); MONOCYTES % 4.9 % (2.0-8.0); NEUTROPHILS % 84.1 % (40.0-76.0); PLATELET 323 x1000/uL (130-400); RED BLOOD CELL COUNT 2.94 mill/uL (4.2-5.4); RED CELL DISTRIBUTION WIDTH 14.2 % (11.6-14.6)
[2019-11-29 12:00] VITALS: BP 105/62
[2019-11-29 16:00] VITALS: BP 96/59
[2019-11-29] MEDS: FERROUS SULFATE 325MG TABLET PO SCH (18:00)
[2019-11-29 20:00] VITALS: BP 93/68
[2019-11-30] VITALS: BP 102/66
[2019-11-30] MEDS: DIPHENHYDRAMINE 50MG/ML VIAL IV PRN ×3 (00:03→13:38)
[2019-11-30 04:00] VITALS: BP 108/65
[2019-11-30] MEDS: BLOOD SUGAR DIAGNOSTIC STRIP TEST SCH ×2 (06:30→12:41)
[2019-11-30 07:10] LABS: BASOPHILS % 0.2 % (0.0-2.0); EOSINOPHILS % 0.8 % (0.0-5.0); HEMATOCRIT. 27.3 % (36.0-48.0); HEMOGLOBIN. 9.2 g/dL (12.0-16.0); LYMPHOCYTES % 19.5 % (20.0-50.0); MEAN CORPUSCULAR HEMOGLOBIN 28.6 pg (28.0-32.0); MEAN CORPUSCULAR VOLUME 84.6 fL (81.0-99.0); MEAN PLATELET VOLUME 7.1 fl (7.4-10.4); MONOCYTES % 6.8 % (2.0-8.0); NEUTROPHILS % 72.7 % (40.0-76.0); PLATELET 393 x1000/uL (130-400); RED BLOOD CELL COUNT 3.22 mill/uL (4.2-5.4); RED CELL DISTRIBUTION WIDTH 14.4 % (11.6-14.6)
[2019-11-30 07:32] LABS: CHLORIDE 108 mEq/L (98-107)
[2019-11-30] MEDS: INSULIN LISPRO 100 UNITS/ML SUBCUT SCH ×2 (07:50→12:50)
[2019-11-30 08:00] VITALS: BP 131/73
[2019-11-30] MEDS: LEVETIRACETAM 500MG PREMIX 100 ML IV SCH (08:17)
[2019-11-30] MEDS: GUAIFENESIN 600MG ER TABLET PO SCH (08:18)
[2019-11-30] MEDS: DOCUSATE SODIUM 250MG CAPSULE PO SCH (08:18)
[2019-11-30] MEDS: FERROUS SULFATE 325MG TABLET PO SCH (08:18)
[2019-11-30] MEDS ORDERED: DOCUSATE SODIUM 250MG CAPSULE PO SCH (09:00)
[2019-11-30] MEDS: MORPHINE SULFATE 15MG TABLET SR PO SCH ×2 (09:00→10:20)
[2019-11-30] MEDS: INSULIN GLARGINE UD 100 UNITS/ML SYR SUBCUT SCH (10:25)
[2019-11-30 12:00] VITALS: BP 111/67
[2019-11-30 14:39] VITALS: BP 111/67
== END 2019-11-30 15:15 | disposition home or self-care (01) | DRG 853 ==
LOC: ER 15:45 → 5WST 22:25 → EDBEDREQ 22:25 → EDBEDREQTM 22:25 → ENRESERV 11-17 02:07 → CANRESERV 11-17 02:07 → MICUSO 11-17 11:35 → 6EST 11-23 18:10
PROVIDERS: ADMIT Internal Medicine; ATTEND Internal Medicine
PROC: 02HV33Z Insertion of Infusion Device into Superior Vena Cava, Percutaneous Approach (ICD-10-PCS; 2019-11-18)
PROC: B548ZZA Ultrasonography of Superior Vena Cava, Guidance (ICD-10-PCS; 2019-11-18)
PROC: 00B20ZZ Excision of Dura Mater, Open Approach (ICD-10-PCS; principal; 2019-11-22)
PROC: 00U207Z Supplement Dura Mater with Autologous Tissue Substitute, Open Approach (ICD-10-PCS; 2019-11-22)
PROC: 0NR00JZ Replacement of Skull with Synthetic Substitute, Open Approach (ICD-10-PCS; 2019-11-22)
DX: A41.9 Sepsis, unspecified organism (principal); G93.6 Cerebral edema; J96.00 Acute respiratory failure, unspecified whether with hypoxia or hypercapnia; E44.1 Mild protein-calorie malnutrition; E87.1 Hypo-osmolality and hyponatremia; C79.31 Secondary malignant neoplasm of brain; C34.90 Malignant neoplasm of unspecified part of unspecified bronchus or lung; G93.40 Encephalopathy, unspecified; J06.9 Acute upper respiratory infection, unspecified; J44.9 Chronic obstructive pulmonary disease, unspecified; E78.5 Hyperlipidemia, unspecified; E87.6 Hypokalemia; M19.90 Unspecified osteoarthritis, unspecified site; D25.9 Leiomyoma of uterus, unspecified; E11.649 Type 2 diabetes mellitus with hypoglycemia without coma; F14.10 Cocaine abuse, uncomplicated; F17.210 Nicotine dependence, cigarettes, uncomplicated; I10 Essential (primary) hypertension; F19.10 Other psychoactive substance abuse, uncomplicated; Z60.2 Problems related to living alone; I25.118 Atherosclerotic heart disease of native coronary artery with other forms of angina pectoris; K57.30 Diverticulosis of large intestine without perforation or abscess without bleeding; I25.2 Old myocardial infarction; Z76.5 Malingerer [conscious simulation]; Z79.4 Long term (current) use of insulin; Z82.49 Family history of ischemic heart disease and other diseases of the circulatory system; Z87.01 Personal history of pneumonia (recurrent); Z95.1 Presence of aortocoronary bypass graft; Z79.899 Other long term (current) drug therapy; Z71.6 Tobacco abuse counseling; Z68.26 Body mass index [BMI] 26.0-26.9, adult
CPT/HCPCS: 36415; 70553; 71045; 71270; 74178; 76937; 76998; 80048; 80053; 80202; 80305; 80320; 81003; 82378; 82728; 82962; 83605; 83880; 84145; 84484; 85025; 85651; 86300; 86301; 86304; 86703; 86705; 86709; 86803; 86850; 86900; 86920; 87340; 87804; 88305; 88307; 88331; 93005; 93306; 93970; 94002; 94640; 96365; 96368; 96375; 96376; 97110; 97116; 97162; 97164; 97166; 97530; 97535; 99285; A9577; C1713; C1725; J0690; J0696; J1100; J1200; J1815; J1885; J1953; J1956; J2250; J2270; J2310; J2405; J2543; J2704; J2710; J3010; J3370; J3480; J3490; J7030; J7040; J7050; J7060; J7120; J7121; J7608; J7620; Q9963; Q9967; G0480